=== PATIENT | female | born 1985 | race Caucasian/White ===

== ENCOUNTER 2016-11-17 22:05 | Emergency (ER) | payer SELFPAY ==
[2016-11-17 22:52] VITALS: BP 136/78; PULSE 95; TEMP 98.2; BMI 32.5
--- NOTE | 2016-11-17 23:54 | PDOC ---
History of Present Illness - General History Source: Patient Exam Limitations: No Limitations <Lisset Glasgow - Last Filed: 11/17/16 23:43> - History of Present Illness Initial Comments: 11/18/16 00:03 The patient is a 30 year old female with no past medical hx who presents to the ED for evaluation of an allergic reaction. The patient states she used a new lotion last night. She put the lotion all over her body. She then woke up this morning with a rash all over her body. She reports the rash worsened throughout the day. She used hydrocortisone cream with no relief. She reports itchy eyes and throat. She denies any SOB, wheezing, nausea, vomiting <Kat Zamora - Last Filed: 11/18/16 00:10> - General Chief Complaint: Allergic Reaction Stated Complaint: ALLERGIC REACTION/RASH Time Seen by Provider: 11/17/16 23:00 Past History - Past Medical History Asthma: No Cancer: No Cardiac Disorders: No Diabetes: No HTN: No Seizures: No Thyroid Disease: No - Psycho/Social/Smoking Cessation Hx Suicidal Ideation: No Smoking Status: Yes Smoking History: Never smoked Have you smoked in the past 12 months: No Number of Cigarettes Smoked Daily: 2 Information on smoking cessation initiated: No Hx Alcohol Use: No Drug/Substance Use Hx: No Hx Substance Use Treatment: No <Lisset Glasgow - Last Filed: 11/17/16 23:43> <Kat Zamora - Last Filed: 11/18/16 00:10> - Past Medical History Allergies/Adverse Reactions: Allergies Allergy/AdvReac Type Severity Reaction Status Date / Time aspirin Allergy Intermediate Rash Verified 11/17/16 22:51 shellfish derived Allergy Intermediate Swelling Verified 11/17/16 22:51 Home Medications: Ambulatory Orders Vit No.124/Iron/FA [ Vitamin Tablet] 1 each PO DAILY 03/07/16 Ibuprofen [Motrin -] 600 mg PO QID #28 tablet 06/28/16 Diphenhydramine HCl [Benadryl -] 25 mg PO Q6H PRN #28 capsule 11/17/16 Prednisone [Deltasone -] 60 mg PO DAILY #12 tablet 11/17/16 Ranitidine [Zantac -] 150 mg PO ONCE #5 tablet 11/17/16 Review of Systems - Review of Systems Able to Perform ROS?: Yes Comments:: 11/18/16 00:04 GENERAL/CONSTITUTIONAL: No: fever, chills, weakness, loss of appetite. HEAD, EYES, EARS, NOSE AND THROAT: +Itchy eyes and throat. No: change in vision , ear pain, discharge, sore throat, throat swelling. CARDIOVASCULAR: No: chest pain, lightheadedness, palpitations, syncope RESPIRATORY: No: cough, shortness of breath, wheezing, hemoptysis, stridor. GASTROINTESTINAL: No: nausea, vomiting, abdominal cramping, diarrhea, rectal bleeding, constipation. GENITOURINARY: No: dysuria, hematuria, frequency, urgency, flank pain. MUSCULOSKELETAL: No: back pain, neck pain, joint pain, muscle swelling or pain SKIN: +Rash No: lesions, pallor, or easy bruising. NEUROLOGIC: No: headache, vertigo, paresthesias, weakness ENDOCRINE: No: unexplained weight gain or loss HEMATOLOGIC/LYMPHATIC: No: anemia, easy bleeding, swelling nodes <Kat Zamora - Last Filed: 11/18/16 00:10> *Physical Exam - Vital Signs Last Vital Signs Temp Pulse Resp BP Pulse Ox 98.2 F 95 H 20 136/78 98 11/17/16 22:51 11/17/16 22:51 11/17/16 22:51 11/17/16 22:51 11/17/16 22:51 <Lisset Glasgow - Last Filed: 11/17/16 23:43> - Vital Signs Last Vital Signs Temp Pulse Resp BP Pulse Ox 98.2 F 95 H 20 136/78 98 11/17/16 22:51 11/17/16 22:51 11/17/16 22:51 11/17/16 22:51 11/17/16 22:51 - Physical Exam Comments: 11/18/16 00:10 GENERAL: The patient is in no acute distress. HEAD: Normal with no signs of trauma. EYES: PERRLA, EOMI, sclera anicteric, conjunctiva clear. ENT: No oral lesions, uvula midline non edematous. Oropharynx clear without exudates.Ears normal, nares patent. Moist mucous membranes. NECK: Normal range of motion, supple without lymphadenopathy, JVD, or masses. LUNGS: Breath sounds equal, clear to auscultation bilaterally. No wheezes, and no crackles. HEART:Regular rate and rhythm, normal S1 and S2 without murmur, rub or gallop. ABDOMEN: Soft, nontender, normoactive bowel sounds. No guarding, no rebound. EXTREMITIES: Normal range of motion, no edema. No clubbing or cyanosis. No erythema, or tenderness. NEUROLOGICAL: Cranial nerves II through XII grossly intact. Normal speech. No focal neurological deficits. MUSCULOSKELETAL: Back nontender to palpation, no CVA tenderness SKIN: +Diffuse urticarial lesions on arms, abdomen, back. No arthropod bites. Warm, Dry, normal turgor. <Kat Zamora - Last Filed: 11/18/16 00:10> Medical Decision Making - Medical Decision Making 11/17/16 23:43 This is a 30 yo F who presents to the ER with diffuse urticaria Pt states she used a body lotion last night She awoke this morning with diffuse urticaria She has been itching all day No change in diet Pt does have prior allergic reaction to aspirin and shellfish, never lotion No recent travel On examination No oral lesions Uvula midline non edematous diffuse urticarial lesions on arms, abdomen, back No arthropod bites Pt states she is willing to pump and dump breast milk while taking these medications I have asked pt to monitor herself for any changes in her breathing, any difficulty swallowing, any progression of symptoms Pt asked to return to the ER for any other concerns or complaints, OR progression of symptoms <Lisset Glasgow - Last Filed: 11/17/16 23:43> *DC/Admit/Observation/Transfer - Discharge Dispostion Admit: No <Lisset Glasgow - Last Filed: 11/17/16 23:43> - Attestations Scribe Attestion: 11/18/16 00:04 Documentation prepared by Kat Zamora, acting as general medical practitioner for Lisset Glasgow MD/. <Kat Zamora - Last Filed: 11/18/16 00:10> Diagnosis at time of Disposition: Allergic reaction to chemical substance Qualifiers: Encounter type: initial encounter Injury intent: accidental or unintentional Qualified Code(s): T65.91XA - Toxic effect of unspecified substance, accidental (unintentional), initial encounter - Discharge Dispostion Disposition: HOME Condition at time of disposition: Stable - Prescriptions Prescriptions: Diphenhydramine HCl [Benadryl -] 25 mg PO Q6H PRN #28 capsule PRN Reason: itching Prednisone [Deltasone -] 60 mg PO DAILY #12 tablet Ranitidine [Zantac -] 150 mg PO ONCE #5 tablet - Referrals Referrals: Aubrey Isabel MD [Primary Care Provider] - - Patient Instructions Printed Discharge Instructions: DI for General Allergic Reactions Additional Instructions: Thank you for coming in to the Er Please monitor yourself for difficulty breathing, swallowing or any new rashes Return to the Er for any of these symptoms OR any other concerns Print Language: INDONESIAN
[2016-11-17] MEDS ORDERED: predniSONE 20 MG TABLET (UD) PO ONE (23:59)
[2016-11-17] MEDS ORDERED: diphenhydrAMINE HCL 25 MG CAPSULE (FP) PO ONE (23:59)
[2016-11-18] MEDS ORDERED: diphenhydrAMINE HCL 25 MG CAPSULE (FP) PO ONE (00:06)
[2016-11-18] MEDS ORDERED: predniSONE 20 MG TABLET (UD) ONE (00:06)
== END 2016-11-18 00:24 | disposition home or self-care (01) ==
LOC: JER 22:05
DX: L23.5 Allergic contact dermatitis due to other chemical products (principal); T49.8X1A Poisoning by other topical agents, accidental (unintentional), initial encounter; Y92.038 Other place in apartment as the place of occurrence of the external cause
CPT/HCPCS: 99282-25

== ENCOUNTER 2019-05-22 04:45 | Day surgery (SDC) | payer OTHER ==
[2019-05-21 13:53] VITALS: BMI 36.6
[2019-05-22 12:10] LABS: HEMATOCRIT 36.8 % (32.4-45.2); HEMOGLOBIN 12.2 GM/dL (10.7-15.3); MCH 28.5 pg (25.7-33.7); MEAN CELL VOLUME 86.2 fl (80-96); MEAN PLT VOLUME 8.9 fl (7.5-11.1); PLATELET COUNT 314 K/MM3 (134-434); RBC 4.28 M/mm3 (3.60-5.2); RDW 13.7 % (11.6-15.6); WHITE BLOOD COUNT 7.5 K/mm3 (4.0-10.0)
[2019-05-22] MEDS ORDERED: DOXYCYCLINE INJECTION 200 MG in DEXTROSE 5%-WATER - 250 ML IVPB ONE ×2 (15:15→17:00)
[2019-05-22] MEDS ORDERED: DOXYCYCLINE INJECTION 100 MG in DEXTROSE 5%-WATER - 100 ML IVPB ONE (15:53)
--- NOTE | 2019-05-22 15:54 | HP ---
History & Physical Update - Physical Physical: No Change - Assessment Assessment: No Change - Plan Plan: No Change
[2019-05-22] MEDS ORDERED: medroxyPROGESTERone ACET 150 MG/1 ML VIAL IM ONE ×2 (16:43→18:50)
--- NOTE | 2019-05-22 16:50 | OP ---
Operative Note - Note: Operative Date: 05/22/19 (Dic # [id number]) Pre-Operative Diagnosis: retained POC Operation: D&C Findings: see dictation Post-Operative Diagnosis: Same as Pre-op Surgeon: Grupo Adams Anesthesia: MAC Specimens Removed: POC Estimated Blood Loss (mls): 5 Fluid Volume Replaced (mls): 300 Operative Report Dictated: Yes
[2019-05-22] MEDS ORDERED: WATER IVPB ONE (16:52)
[2019-05-22] MEDS ORDERED: DEXTROSE 5% IVPB ONE (16:52)
[2019-05-22] MEDS ORDERED: DOXYCYCLINE IVPB ONE (16:52)
--- NOTE | 2019-05-22 16:54 | PN ---
Progress Note (short form) - Note Progress Note: Patient desires depo-provera for contraception. Risks and side effects discussed and all questions answered. No absolute contraindication exists. It will be administered prior to discharge.
[2019-05-22 19:42] VITALS: BP 121/65; PULSE 78; TEMP 97.9
--- NOTE | 2019-05-23 13:26 | OP ---
DATE OF OPERATION: 05/22/2019 ATTENDING: Chano Shepherd MD PREOPERATIVE DIAGNOSIS: A 33-year-old female, missed , failed medical treatment, retained products of conception, bleeding. POSTOPERATIVE DIAGNOSIS: A 33-year-old female, missed , failed medical treatment, retained products of conception, bleeding. PROCEDURE: Dilatation and curettage. FINDINGS: A scant amount of tissue, minimal bleeding. Normal external genitalia and vaginal mucosa. Cervix was slightly dilated with oozing from the cervical os. The uterus was approximately measuring 8 cm. ANESTHESIA: MAC. ESTIMATED BLOOD LOSS: For the procedure is minimal. INTRAVENOUS FLUIDS: Crystalloid 300 mL. INTRAVENOUS ANTIBIOTICS PREOPERATIVE: Doxycycline 200 mg. COMPLICATIONS: None. SPECIMEN: Products of conception. DESCRIPTION OF PROCEDURE: Patient was taken to the operating room where anesthesia was found to be adequate. She was then prepped and draped in a normal sterile fashion. Appropriate time-out took place. Metal retractors were utilized to visualize the cervix, which the anterior aspect was grasped with a Enrique tenaculum. The cervix was slightly dilated and was further dilated with Hegar dilators. Smooth curette was advanced to the fundus without difficulty, and systematic curetting of the intrauterine cavity took place until a gritty texture was detected throughout. Scant, minimal amount of tissue on the Telfa, specimen tissue. Specimen was sent to Pathology. No active bleeding from the os or the tenaculum site. Instrument counts were reported as correct x2. Patient in stable condition going to the recovery room. CHANO SHEPHERD MD [id number]
--- NOTE | 2019-05-26 18:25 | PATH ---
Surgical Pathology Report Patient Name: IVET DODD [facility]. Rec. #: [id number] /Age/Gender: 1985 (Age: 33) / F Account: [id number] Location: [facility] Taken: 05/22/2019 Received: 05/25/2019 Reported: 05/26/2019 Physicians: Grupo Adams MD Specimen(s) Received PRODUCTS OF CONCEPTION Clinical History Missed Final Diagnosis RETAINED PRODUCTS OF CONCEPTION: MARKED DEGENERATED CHORIONIC VILLI AND DECIDUAL TISSUE WITH ACUTE INFLAMMATION, CONSISTENT WITH PRODUCTS OF CONCEPTION. SEPARATE SECRETORY TYPE ENDOMETRIUM. Electronically Signed Carmela Maldonado M.D. Gross Description Received in formalin labeled "retained products of conception," is a 4.0 x 4.0 x 0.5 cm aggregate of rincon-brown soft tissue fragments. No definite villous tissue or somatic tissue is identified. The specimen is entirely submitted in 4 cassettes. /05/25/2019 saudi/05/25/2019
== END 2019-05-22 19:25 | disposition home or self-care (01) ==
LOC: JASU-SURG 04:45
PROVIDERS: ATTEND Student in an Organized Health Care Education/Training Program
PROC: 10D07Z8 Extraction of Products of Conception, Other, Via Natural or Artificial Opening (ICD-10-PCS; principal; 2019-05-22 13:30)
DX: O02.1 Missed abortion (principal)
CPT/HCPCS: 36415; 85027; 86850; 86900; 86901; 88305-TC; 94760